=== PATIENT | female | born 1975 | race Caucasian/White ===

== ENCOUNTER 2017-02-21 19:07 | Emergency (ER) | payer SELFPAY ==
[~2017-02-21] VITALS: Ht 157.5 cm; Wt 61.2 kg
--- NOTE | 2017-02-21 19:24 | ED GI ---
General Chief Complaint: Abdominal/GI Problems Stated Complaint: R SIDE PAIN Source of Information: Patient Exam Limitations: No Limitations History of Present Illness Time Seen By Provider: 19:22 Initial Comments To ER with right-sided abdominal pain that first began about 2 weeks ago. The pain is very well localized at that time and she got it might of been a kidney stone. She ignored it and went on about her life. Over the course of the past 2 weeks the pain has progressed becoming more intense and involving a larger area on the right anterior lower abdomen. She's had a complete hysterectomy with both ovaries removed. She states that laying flat makes the pain worse as does breathing, laughing or anything touching her abdomen. She denies fevers or chills. She denies changes in bowel movements as she's been having normal bowel movements. No nausea or vomiting. Timing/Duration: 1-2 Days Severity/Quality: Moderate Location: RLQ Radiation: No Radiation Activities at Onset: None Associated Symptoms: No Fever/Chills, No Nausea/Vomiting Allergies and Home Medications Allergies Coded Allergies: No Known Drug Allergies (Verified Allergy, Unknown, 03/28/08) Review of Systems Constitutional: see HPI EENTM: No Symptoms Reported Respiratory: No Symptoms Reported Cardiovascular: No Symptoms Reported Gastrointestinal: See HPI, Abdominal Pain, Denies Constipated, Denies Diarrhea , Denies Nausea Genitourinary: No Symptoms Reported Musculoskeletal: no symptoms reported Skin: no symptoms reported Psychiatric/Neurological: No Symptoms Reported Endocrine: No Symptoms Reported Past Omcsnzz-Cbhmfk-Clliuf Hx Patient Social History Recent Foreign Travel: No Contact w/Someone Who Travel: No Physical Exam Vital Signs VS - Last 72 Hours, by Label 02/21/17 19:22 Temp 98.6 Pulse 73 Resp 16 B/P (MAP) 162/106 Pulse Ox 97 O2 Delivery Room Air Capillary Refill : General Appearance: WD/WN, no apparent distress HEENT: PERRL/EOMI, normal ENT inspection Neck: non-tender, full range of motion Respiratory: no respiratory distress, no accessory muscle use Gastrointestinal: normal bowel sounds, soft, guarding, rebound, tenderness Extremities: normal range of motion, non-tender, normal inspection Neurologic/Psychiatric: alert, normal mood/affect, oriented x 3 Skin: normal color, warm/dry Progress/Results/Core Measures Results/Orders Lab Results Laboratory Tests Test 02/21/17 19:20 Range/Units White Blood Count 6.1 4.3-11.0 10^3/uL Red Blood Count 4.52 4.35-5.85 10^6/uL Hemoglobin 13.6 11.5-16.0 G/DL Hematocrit 40 35-52 % Mean Corpuscular Volume 89 80-99 FL Mean Corpuscular Hemoglobin 30 25-34 PG Mean Corpuscular Hemoglobin Concent 34 32-36 G/DL Red Cell Distribution Width 12.4 10.0-14.5 % Platelet Count 258 130-400 10^3/uL Mean Platelet Volume 10.6 H 7.4-10.4 FL Neutrophils (%) (Auto) 37 L 42-75 % Lymphocytes (%) (Auto) 52 H 12-44 % Monocytes (%) (Auto) 9 0-12 % Eosinophils (%) (Auto) 2 0-10 % Basophils (%) (Auto) 1 0-10 % Neutrophils # (Auto) 2.2 1.8-7.8 X 10^3 Lymphocytes # (Auto) 3.2 1.0-4.0 X 10^3 Monocytes # (Auto) 0.5 0.0-1.0 X 10^3 Eosinophils # (Auto) 0.1 0.0-0.3 10^3/uL Basophils # (Auto) 0.1 0.0-0.1 10^3/uL Urine Color YELLOW Urine Clarity SLIGHTLY CLOUDY Urine pH 6.5 5-9 Urine Specific [place] 1.020 1.016-1.022 Urine Protein 1+ H NEGATIVE Urine Glucose (UA) NEGATIVE NEGATIVE Urine Ketones NEGATIVE NEGATIVE Urine Nitrite NEGATIVE NEGATIVE Urine Bilirubin NEGATIVE NEGATIVE Urine Urobilinogen 4 H NORMAL MG/DL Urine Leukocyte Esterase 2+ H NEGATIVE Urine RBC (Auto) NEGATIVE NEGATIVE Urine RBC NONE /HPF Urine WBC 25-50 H /HPF Urine Squamous Epithelial Cells 5-10 /HPF Urine Crystals NONE /LPF Urine Bacteria MODERATE H /HPF Urine Casts NONE /LPF Urine Mucus LARGE H /LPF Urine Culture Indicated YES Sodium Level 144 135-145 MMOL/L Potassium Level 4.3 3.6-5.0 MMOL/L Chloride Level 108 H 98-107 MMOL/L Carbon Dioxide Level 26 21-32 MMOL/L Anion Gap 10 5-14 MMOL/L Blood Urea Nitrogen 22 H 7-18 MG/DL Creatinine 0.74 0.60-1.30 MG/DL Estimat Glomerular Filtration Rate > 60 BUN/Creatinine Ratio 30 H 0-20 Glucose Level 95 70-105 MG/DL Calcium Level 9.3 8.5-10.1 MG/DL Total Bilirubin 0.3 0.1-1.0 MG/DL Aspartate Amino Transf (AST/SGOT) 19 5-34 U/L Alanine Aminotransferase (ALT/SGPT) 21 0-55 U/L Alkaline Phosphatase 203 H 40-136 U/L Total Protein 6.9 6.4-8.2 GM/DL Albumin 4.0 3.2-4.5 GM/DL Lipase 55 8-78 U/L My Orders Orders - MARILYN CMAPOS APRN Fentanyl Injection (Sublimaze Injection (02/21/17 19:30) Cbc With Automated Diff (02/21/17 19:21) Comprehensive Metabolic Panel (02/21/17 19:21) Lipase (02/21/17 19:21) Ua Culture If Indicated (02/21/17 19:21) Ct Abd/Pelvis Wo(Kidney Stone) (02/21/17 19:21) Urine Culture (02/21/17 19:20) Medications Given in ED Current Medications Medications Dose Ordered Sig/Feliberto Route Start Time Stop Time Status Last Admin Dose Admin Fentanyl Citrate 50 mcg ONCE ONCE IVP 02/21/17 19:30 02/21/17 19:32 DC 02/21/17 19:29 50 MCG Vital Signs/I&O Vital Sign - Last 12Hours 02/21/17 19:22 Temp 98.6 Pulse 73 Resp 16 B/P (MAP) 162/106 Pulse Ox 97 O2 Delivery Room Air Diagnostic Imaging Diagonstic Imaging: CT Comments NAME: ZHENG JACKSON [facility] REC#: [id number] PT STATUS: REG ER : 1975 PHYSICIAN: MARILYN CAMPOS APRN ADMIT DATE: 02/21/17/ER Draft Date of Exam:02/21/17 CT ABD/PELVIS WO(KIDNEY STONE) PROCEDURE: CT urinary tract, rule out kidney stone. TECHNIQUE: Multiple contiguous axial images were obtained through the abdomen and pelvis without the use of intravenous contrast. INDICATION: Right flank pain. COMPARISON: 04/07/2008 FINDINGS: Evaluation of the abdominal viscera is mildly limited without contrast. Lower chest: The lung bases are clear. No pericardial or pleural effusion. Peritoneum: No free intraperitoneal air or fluid. Liver and biliary system: Unenhanced liver is normal. The gallbladder is normal. No biliary duct dilation. Spleen and Pancreas: Spleen is normal. Unenhanced pancreas is grossly normal. Adrenals: Normal. tract: Atrophy of the left kidney is unchanged. Right kidney is stable in size, measuring approximately 11 cm. No renal or ureteral calculi on either side. The urinary bladder is decompressed, which limits evaluation. Uterus is small versus surgically absent. GI tract: Stomach is distended with fluid and food debris. No bowel obstruction. No pericolonic inflammatory changes. Hyperdensity in the region of the distal cecum likely relates to prior appendectomy. Vasculature and Lymph nodes: Normal caliber aorta. No abdominal or pelvic lymphadenopathy. Musculoskeletal: No concerning osseous lesion. IMPRESSION: 1. No urinary tract calculi or obstructive uropathy. 2. Unchanged atrophy of the left kidney which is likely congenital in nature or due to remote vascular insult. Dictated on workstation # [id number] Dict: 02/21/171935 Trans: 02/21/171940 [facility] [id number] Interpreted by: HONG CUMMINS MD Electronically signed by: Departure Impression Impression: Primary Impression: Urinary tract infection Qualified Codes: N30.00 - Acute cystitis without hematuria Disposition: 01 HOME, SELF-CARE Condition: Stable Departure-Patient Inst. Decision time for Depature: 19:46 Patient Instructions: Urinary Tract Infection, Adult (DC) Add. Discharge Instructions: 1. Antibiotic directed 2. Return to ER for any concerns 3. See your doctor next week All discharge instructions reviewed with patient and/or family. Voiced understanding. Scripts Ciprofloxacin HCl (Ciprofloxacin HCl) 250 Mg Tablet 250 MG PO BID, #10 TAB Prov: MARILYN CAMPOS TRUANT OFFICER 02/21/17 MARILYN CAMPOS TRUANT OFFICER Feb 21, 2017 19:24
[2017-02-21 19:29] LABS: BASOPHILS # (AUTO) 0.1 10^3/uL (0.0-0.1); BASOPHILS % (AUTO) 1 % (0-10); EOSINOPHILS # (AUTO) 0.1 10^3/uL (0.0-0.3); EOSINOPHILS % (AUTO) 2 % (0-10); LYMPHOCYTES # (AUTO) 3.2 X 10^3 (1.0-4.0); LYMPHOCYTES % (AUTO) 52 % (12-44); MEAN CORPUSCULAR HEMOGLOBIN 30 PG (25-34); MEAN CORPUSCULAR HGB CONC 34 G/DL (32-36); MEAN CORPUSCULAR VOLUME 89 FL (80-99); MEAN PLATELET VOLUME 10.6 FL (7.4-10.4); MONOCYTES # (AUTO) 0.5 X 10^3 (0.0-1.0); MONOCYTES % (AUTO) 9 % (0-12); NEUTROPHILS # (AUTO) 2.2 X 10^3 (1.8-7.8); NEUTROPHILS % (AUTO) 37 % (42-75); PLATELET COUNT 258 10^3/uL (130-400); RED BLOOD COUNT 4.52 10^6/uL (4.35-5.85); RED CELL DISTRIBUTION WIDTH 12.4 % (10.0-14.5); WHITE BLOOD COUNT 6.1 10^3/uL (4.3-11.0)
[2017-02-21] MEDS ORDERED: fentaNYL INJECTION 100 MCG/2 ML AMP IVP ONE (19:30)
[2017-02-21 19:42] LABS: ALANINE AMINOTRANSFERASE 21 U/L (0-55); ANION GAP 10 MMOL/L (5-14); ASPARTATE AMINO TRANSFERASE 19 U/L (5-34); BILIRUBIN,TOTAL 0.3 MG/DL (0.1-1.0); BLOOD UREA NITROGEN 22 MG/DL (7-18); BUN/CREATININE RATIO 30 (0-20); CALCIUM 9.3 MG/DL (8.5-10.1); CARBON DIOXIDE 26 MMOL/L (21-32); CHLORIDE 108 MMOL/L (98-107); CREATININE SERUM 0.74 MG/DL (0.60-1.30); GFR ESTIMATED > 60; GLUCOSE 95 MG/DL (70-105); HEMOLYSIS 14 (-100-29); ICTERUS 0.7 (-100-1.9); LIPASE 55 U/L (8-78); LIPEMIA 35 (-100-49); POTASSIUM 4.3 MMOL/L (3.6-5.0); SODIUM 144 MMOL/L (135-145); TOTAL PROTEIN 6.9 GM/DL (6.4-8.2)
--- NOTE | 2017-02-21 19:42 | Diagnostic Imaging Report ---
PROCEDURE: CT urinary tract, rule out kidney stone. TECHNIQUE: Multiple contiguous axial images were obtained through the abdomen and pelvis without the use of intravenous contrast. INDICATION: Right flank pain. COMPARISON: 04/07/2008 FINDINGS: Evaluation of the abdominal viscera is mildly limited without contrast. Lower chest: The lung bases are clear. No pericardial or pleural effusion. Peritoneum: No free intraperitoneal air or fluid. Liver and biliary system: Unenhanced liver is normal. The gallbladder is normal. No biliary duct dilation. Spleen and Pancreas: Spleen is normal. Unenhanced pancreas is grossly normal. Adrenals: Normal. tract: Atrophy of the left kidney is unchanged. Right kidney is stable in size, measuring approximately 11 cm. No renal or ureteral calculi on either side. The urinary bladder is decompressed, which limits evaluation. Uterus is small versus surgically absent. GI tract: Stomach is distended with fluid and food debris. No bowel obstruction. No pericolonic inflammatory changes. Hyperdensity in the region of the distal cecum likely relates to prior appendectomy. Vasculature and Lymph nodes: Normal caliber aorta. No abdominal or pelvic lymphadenopathy. Musculoskeletal: No concerning osseous lesion. IMPRESSION: 1. No urinary tract calculi or obstructive uropathy. 2. Unchanged atrophy of the left kidney which is likely congenital in nature or due to remote vascular insult. Dictated by: Dictated on workstation # [id number]
[2017-02-21 19:44] LABS: BILIRUBIN,URINE NEGATIVE (NEGATIVE); KETONES,URINE NEGATIVE (NEGATIVE); LEUKOCYTE ESTERASE ,URINE 2+ (NEGATIVE); NITRITE,URINE NEGATIVE (NEGATIVE); PH,URINE 6.5 (5-9); PROTEIN,URINE 1+ (NEGATIVE); UROBILINOGEN,URINE 4 MG/DL (NORMAL); WBC,URINE 25-50 /HPF
[2017-02-21] MEDS ORDERED: CIPR250T3 PO (19:47)
[2017-02-21] MEDS ORDERED: LEVOFLOXACIN 500 MG TAB (LEVAQUIN) PO ONE (20:00)
[2017-02-21] MEDS ORDERED: RX-HYDROCODONE/APAP 5/325 MG #4 TAB PK PO PRN (20:00)
[2017-02-21 20:03] VITALS: BP 136/104
--- OUTSIDE RECORDS SUMMARY | 2017-02-23 17:29 | XMS REPORT | Continuity of Care Document ---
Author Author [facility] Organization [facility] Address Unknown Phone Unavailable Allergies Active Description Code Type Severity Reaction Onset Reported/Identified Relationship to Patient Clinical Status Yes No Known Drug Allergies [id number] Drug Allergy Unknown N/ A 03/28/2008 Medications Problems Date Dx Coded Attending Type Code Diagnosis Diagnosed By 04/08/2008 Ot 285.9 04/08/2008 Ot 564.00 04/08/2008 Ot 617.9 04/08/2008 Ot 789.03 04/08/2008 Ot 998.12 04/08/2008 Ot E878.6 04/08/2008 Ot V45.77 12/06/2014 OSBALDO BARRAZA, CIELO Aguillon Ot 719.45 12/06/2014 OSBALDO BARRAZA, CIELO Aguillon Ot 719.46 12/06/2014 OSBALDO BARRAZA, CIELO Aguillon Ot 724.2 12/22/2014 CIELO ROBLERO MD Ot 719.45 12/22/2014 OSBALDO BARRAZA, CIELO Aguillon Ot 719.46 12/22/2014 OSBALDO BARRAZA, CIELO Aguillon Ot 724.2 12/22/2014 OSBALDO BARRAZA, CIELO Aguillon Ot 719.45 12/22/2014 OSBALDO BARRAZA, CIELO Aguillon Ot 719.46 12/22/2014 OSBALDO BARRAZA, CIELO Aguillon Ot 724.2 12/25/2014 Ot 587 12/25/2014 Ot 592.0 12/25/2014 Ot 617.9 12/25/2014 Ot 620.0 12/25/2014 Ot 789.34 12/25/2014 Ot 617.9 12/25/2014 Ot 789.30 12/25/2014 Ot V81.5 12/25/2014 Ot 617.9 12/25/2014 Ot 791.9 12/25/2014 Ot V72.83 12/25/2014 Ot V74.8 12/25/2014 CIELO ROBLERO MD Ot 719.45 12/25/2014 OSBALDO BARRAZA, CIELO Aguillon Ot 719.46 12/25/2014 CIELO ROBLERO MD Ot 724.2 12/25/2014 Ot 611.72 12/27/2014 OSBALDO BARRAZA, CIELO Aguillon Ot 719.45 12/27/2014 OSBALDO BARRAZA, CIELO Aguillon Ot 719.46 12/27/2014 OSBALDO BARRAZA, CIELO Aguillon Ot 724.2 12/27/2014 CIELO ROBLERO MD Ot 719.45 12/27/2014 CIELO ROBLERO MD Ot 719.46 12/27/2014 OSBALDO BARRAZA, CIELO Aguillon Ot 724.2 02/05/2015 CIELO ROBLERO MD Ot 719.45 02/05/2015 CIELO ROBLERO MD Ot 719.46 02/05/2015 CIELO ROBLERO MD Ot 724.2 02/19/2015 CIELO ROBLERO MD Ot 719.45 02/19/2015 CIELO ROBLERO MD Ot 719.46 02/19/2015 CIELO ROBLERO MD Ot 724.2 12/10/2015 CIELO ROBLERO MD Ot 719.45 12/10/2015 CIELO ROBLERO MD Ot 719.46 12/10/2015 CIELO ROBLERO MD Ot 724.2 12/10/2015 MARILYN CAMPOS APRN Ot M25.531 PAIN IN RIGHT WRIST 12/10/2015 MARILYN CAMPOS APRN Ot Z53.21 PROC/TRTMT NOT CRD OUT D/T PT LV BEF SEE 12/12/2015 MARILYN CAMPOS APRN Ot M25.531 12/12/2015 MARILYN CAMPOS APRN Ot Z53.21 12/12/2015 MARILYN CAMPOS APRN Ot M25.531 12/12/2015 MARILYN CAMPOS APRN Ot Z53.21 12/13/2015 CIELO ROBLERO MD Ot 719.45 12/13/2015 CIELO ROBLERO MD Ot 719.46 12/13/2015 CIELO ROBLERO MD Ot 724.2 Procedures Results Encounters ACCT No. Visit Date/Time Discharge Status Pt. Type Provider Facility Loc./Unit Complaint [id number] 12/10/2015 20:32:00 2015 20:37:00 DIS Emergency MARILYN CAMPOS APRN [facility] [id number] 07/03/2014 10:58:00 2013 23:59:59 CLS Outpatient CIELO ROBLERO MD [facility] RAD [id number] 11/06/2015 08:29:00 ACT Outpatient ROBBIE ARANDA APRN [facility] QUICK [id number] 12/25/2014 14:10:00 Document Registration [id number] 07/22/2011 14:13:00 Document Registration [id number] 04/07/2008 11:29:00 Document Registration [id number] 03/22/2008 12:04:00 Document Registration [id number] 03/19/2006 09:24:00 Document Registration [id number] 03/18/2006 11:39:00 Document Registration
== END 2017-02-21 20:05 | disposition home or self-care (01) ==
LOC: EDUNIT# 19:07 → ER 19:10
DX: N39.0 Urinary tract infection, site not specified (principal)
CPT/HCPCS: 36415; 74176; 80053; 81000; 83690; 85025; 87088; 87186

== ENCOUNTER → 2021-09-09 | Outpatient (CLI) | payer SELFPAY ==
[~2021-09-09] MED LIST: CIPR250T3 PO
--- NOTE | 2021-09-09 13:01 | Diagnostic Imaging Report ---
INDICATION: Routine screening. Comparison is made with prior mammogram 07/20/2011. 2-D and 3-D bilateral screening mammography was performed with CAD. Scattered fibroglandular densities are identified bilaterally. There is a tiny nodular density in the outer aspect of the right breast, not present on prior exam. This is approximately 9 to 10 cm from the nipple. Additional views would be recommended. Left breast is unremarkable. No malignant-appearing microcalcifications are seen. Axillae are unremarkable. IMPRESSION: Right breast density. Additional views recommended for further evaluation. BI-RADS 0 ACR BI-RADS Category 0: Incomplete. (Needs additional imaging evaluation). Result letter will be mailed to the patient. Note: At least 10% of breast cancer is not imaged by mammography. Dictated by: Dictated on workstation # [id number]
== END ==
LOC: RAD 10:53
DX: Z12.31 Encounter for screening mammogram for malignant neoplasm of breast (principal); N64.59 Other signs and symptoms in breast
CPT/HCPCS: 77063; 77067

== ENCOUNTER → 2021-09-11 | Outpatient (CLI) | payer SELFPAY ==
--- NOTE | 2021-09-11 15:27 | Diagnostic Imaging Report ---
INDICATION: Right breast density. Patient presents for additional views. Correlation is made with recent screening study from 09/09/2021. Unilateral right 2-D and 3-D diagnostic mammography was performed. This includes spot compression CC and ML views as well as conventional 90 degrees lateral views. Additional views show persistent tiny circumscribed nodule in the outer right breast approximately 9 to 10 cm from the nipple. This projects slightly lower than the nipple line on the MLO view. Further evaluation of ultrasound is recommended. IMPRESSION: Persistent tiny circumscribed nodule in slightly lower and outer right breast 9 to 10 cm from the nipple. Further evaluation with ultrasound is recommended and will be performed today. BI-RADS 0 ACR BI-RADS Category 0: Incomplete. (Needs additional imaging evaluation). Result letter will be mailed to the patient. Note: At least 10% of breast cancer is not imaged by mammography. Dictated by: Dictated on workstation # [id number]
--- NOTE | 2021-09-11 17:01 | Diagnostic Imaging Report ---
INDICATION: Right breast density. Correlation is made with the diagnostic mammogram earlier the same day as well as screening mammogram from 09/09/2021. Sonographic interrogation of the outer right breast was performed. There is a tiny circumscribed hypoechoic nodule at the 9 o'clock location, 7 cm from the nipple measuring 4 mm x 2 mm x 4 mm. This likely accounts for the mammographic density. This does have an echogenic center and may represent a tiny lymph node. No internal vascularity is seen. No suspicious abnormality is identified. IMPRESSION: Benign nodule outer right breast corresponding to the mammographic density. The patient may return to routine annual screening mammography. BI-RADS Category 2 ACR BI-RADS Category 2: Benign findings. Result letter will be mailed to the patient. Note: At least 10% of breast cancer is not imaged by mammography. Dictated by: Dictated on workstation # [id number]
== END ==
LOC: RAD 14:15
DX: Z01.818 Encounter for other preprocedural examination (principal); N63.15 Unspecified lump in the right breast, overlapping quadrants
CPT/HCPCS: 76642; 77065; G0279